=== PATIENT | male | born 2000 | race Two or more races ===

== ENCOUNTER 2018-03-10 08:41 | Day surgery (SDC) | payer OTHER ==
[~2018-03-10 08:41] MED LIST: ACETAMINOPHEN 1,000 MG/100 ML RTUPB IV ONE; DEXAMETHASONE SOD PHOSPHATE INJ 4 MG/1 ML VIAL ONE; FENTANYL CITRATE INJ/PF 100 MCG/2 ML AMPUL ONE; LIDOCAINE 2% INJ-PF (20 MG/ML) 10 ML AMPUL ONE; MIDAZOLAM 2 MG/2 ML INJ ONE; ONDANSETRON HCL INJ/PF 4 MG/2 ML SDV ONE; PROPOFOL INJ 200 MG/20 ML VIAL IV ONE; SUCCINYLCHOLINE CHLORIDE INJ 200 MG/10 ML VIAL ONE
[2018-03-10] MEDS ORDERED: BUPIVACAINE HCL 0.5 % INJ/PF 30 ML SDV ONE (08:57)
[2018-03-10] MEDS ORDERED: LIDOCAINE 1% INJ-PF (10 MG/ML) 30 ML SDV ONE (08:57)
[2018-03-10] MEDS ORDERED: CEFAZOLIN 2 GM/D5W RTU 2 GM/50 ML RTUPB IV ONE (10:23)
[2018-03-10] MEDS ORDERED: MEPERIDINE HCL/PF INJ 25 MG/1 ML DISP.SYRIN IV PRN (10:57)
[2018-03-10] MEDS ORDERED: DIPHENHYDRAMINE HCL 50 MG/ML VIAL IV PRN (10:57)
[2018-03-10] MEDS ORDERED: FENTANYL CITRATE INJ/PF 100 MCG/2 ML AMPUL IV PRN ×3 (10:57)
[2018-03-10] MEDS ORDERED: PROMETHAZINE HCL INJ 25 MG/1 ML VIAL IV PRN ×2 (10:57)
[2018-03-10] MEDS ORDERED: ONDANSETRON HCL INJ/PF 4 MG/2 ML SDV IV PRN ×2 (10:57→12:29)
[2018-03-10] MEDS ORDERED: MORPHINE SULFATE 10 MG/ML INJ IV PRN (10:57)
[2018-03-10] MEDS ORDERED: FENTANYL CITRATE INJ/PF 100 MCG/2 ML AMPUL ONE (12:24)
[2018-03-10] MEDS ORDERED: OXYCODONE-ACETAMINOPHEN 5-325 MG TABLET PO PRN (12:29)
--- NOTE | 2018-03-10 12:41 | OPERATIVE REPORT E ---
Operative Report NAME: MICHELLE ROLLINS : 2000 AGE: 17Y DATE OF SURGERY: 03/10/2018 ROOM: PREOPERATIVE DIAGNOSIS: Left ring proximal phalanx displaced fracture. POSTOPERATIVE DIAGNOSIS: Left ring proximal phalanx displaced fracture. OPERATION: Open reduction and internal fixation, left ring proximal phalanx fracture. SURGEON: LUPIS GOTTLIEB M.D. ANESTHESIA: General. ESTIMATED BLOOD LOSS: Minimal. COMPLICATIONS: None. IMPLANTS: Maximilian 1.7 mm screw. 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 DESCRIPTION OF PROCEDURE: Following the induction of a general anesthetic and administration of antibiotics, the patient was placed supine on the operating room table. Bony prominences were padded. A tourniquet was placed proximally on the left arm but not inflated. The left upper extremity was sterilely prepped with ChloraPrep and draped in sterile fashion. The arm was exsanguinated and the tourniquet inflated to 250 mmHg. A mid lateral incision was made on the radial aspect of the ring finger proximal phalanx. Sharp dissection was performed through skin. Blunt dissection was performed through the subcutaneous tissue with care taken to protect superficial branching nerves. The fracture lines were opened with a 15 blade and curetted out. The fracture was reduced under 3.5 x loupe magnification and the fracture clamped into position. With the fracture clamped into position 3 separate 1.7 mm screws were placed in lag fashion from the radial to the ulnar aspect of the digit. They were countersunk. C-arm was brought in which confirmed anatomic reduction of the fracture and correct placement of implants. The wound was irrigated. The skin was reapproximated with 4-0 nylon suture, 0.25% Marcaine was injected for postoperative analgesia, and a bulky sterile dressing was applied. The patient tolerated the procedure well without complications and was brought to the recovery room in stable condition. DICTATING PHYSICIAN: LUPIS GOTTLIEB M.D. [id number] PHY#: [id number] ID: [id number] JOB#: [id number] ACCT: [id number] cc:LUPIS GOTTLIEB M.D. >
[2018-03-10] MEDS ORDERED: OXYCODONE-ACETAMINOPHEN 5-325 MG TABLET ONE (13:05)
--- NOTE | 2018-03-10 13:10 | RADIOLOGY REPORT (SQ) ---
EXAM DESCRIPTION: NO CHG FLUORO COMPLETE DATE/TIME: 03/10/2018 12:58 pm REASON FOR STUDY: ORIF LEFT FINGER ASST WITH FLUORO IN OR S62.670A DISP FX OF PROXIMAL PHALANX OF L EFT RING FINGER, IN FINDINGS: Please see combined report for performance of procedure and radiologic supervision and int erpretation. IMPRESSION: Please see combined report for performance of procedure and radiologic supervision and i nterpretation. Reading location - IP/workstation name: [email or web address]
--- NOTE | 2018-03-10 13:10 | RADIOLOGY REPORT (SQ) ---
EXAM DESCRIPTION: FINGER LEFT COMPLETED DATE/TIME: 03/10/2018 12:58 pm REASON FOR STUDY: ORIF LEFT FINGER ASST WITH FLUORO IN OR S62.615A DISP FX OF PROXIMAL PHALANX OF L EFT RING FINGER, IN COMPARISON: None. FLUOROSCOPY TIME: 7 seconds 3 images saved to PACS. TECHNIQUE: Intra-operative images acquired during surgical procedure to evaluate progress. NUMBER OF IMAGES: 3 image LIMITATIONS: None. FINDINGS: Fluoroscopic images were obtained during internal fixation of the fracture involving the p roximal phalanx of the left 4th digit. Please refer to the surgeon's operative report for additional information. IMPRESSION: IMAGE(S) OBTAINED DURING PROCEDURE. COMMENT: Quality ID [id number]: Final reports for procedures using fluoroscopy that document radiation exp osure indices, or exposure time and number of fluorographic images (if radiation exposure indices are not available) Please consult full operative report of the attending physician for description of the procedure. TECHNICAL DOCUMENTATION: JOB ID: [id number] All Rights Reserved Reading location - IP/workstation name: [email or web address]
[2018-03-10 14:46] VITALS: BP 142/85
== END 2018-03-10 13:55 | disposition home or self-care (01) ==
LOC: OROUT 08:41
PROVIDERS: ATTEND Orthopaedic Surgery
DX: S62.615A Displaced fracture of proximal phalanx of left ring finger, initial encounter for closed fracture (principal); W01.0XXA Fall on same level from slipping, tripping and stumbling without subsequent striking against object, initial encounter; Y99.1 Military activity
CPT/HCPCS: 73140; 26735; C1713 ×3; J2250; J3490 ×2; J1100; J3010; J0330; J2405; J2704; J0690; J0131; 01830